=== PATIENT | male | born 1975 | race Caucasian/White ===

== ENCOUNTER 2022-12-17 09:05 | Emergency (ER) | payer MEDICAID ==
[~2022-12-17] VITALS: Ht 180.3 cm; Wt 83.9 kg
[2022-12-17 09:09] VITALS: BP 103/69
[2022-12-17] MEDS ORDERED: HYDROcodone/APAP 5/325 MG 1 TAB TAB PO ONE (09:25)
[2022-12-17] MEDS ORDERED: [UNRECOGNIZED DRUG - CODE] PO (09:26)
[2022-12-17] MEDS ORDERED: AMOX-1230 PO (09:26)
[2022-12-17] MEDS ORDERED: ONDA-188 PO (09:26)
[2022-12-17] MEDS ORDERED: IBUP-2213 PO (09:26)
--- NOTE | 2022-12-17 10:07 | NUR ---
Patient discharged with v/s stable. Written and verbal after care instructions given and explained. Patient verbalized understanding. Ambulatory with steady gait. All questions addressed prior to discharge. Advised to follow up with PMD.
== END 2022-12-17 10:07 | disposition home or self-care (01) ==
LOC: MED 09:05
DX: K04.7 Periapical abscess without sinus (principal); Z79.899 Other long term (current) drug therapy
CPT/HCPCS: 99283